=== PATIENT | female | born 1965 | race Two or more races ===

== ENCOUNTER 2024-12-17 10:15 | Outpatient (AMB) | payer MEDICAID, SELFPAY ==
--- NOTE | 2024-12-17 10:42 | PD.ORTHCLVIS ---
Vital signs 12/17/24 10:43 Height 1.45 m Height Method Stated Weight 74.644 kg Weight Measurement Method Standing Scale BMI 35.6 BP 130/77 Blood Pressure Source Automatic Cuff Blood Pressure Location Left Upper Arm Position Sitting Respiration 18 Pulse 84 Pulse Source Monitor Temp 97.5 F Temp Source Temporal Artery Scan Pulse Oximetry (%) 97 Oxygen Delivery Method Room Air Med/Allergies Allergies & Medications Allergies NKA Allergy (Unknown, Uncoded 12/17/24 10:43) No Known Allergies Allergy (Uncoded 12/17/24 10:43) Medication Reconciliation ibuprofen 800 mg tablet 800 mg PO TID PRN Pain 12/06/20 [History Confirmed 12/17/24] tramadol 50 mg tablet 50 mg PO BID 12/06/20 [History Confirmed 12/17/24] Exam Exam Patient is in no acute distress and is cooperative with the examination today. Breathing is nonlabored. In no respiratory distress. Bilateral extremities were evaluated and demonstrates sensation intact to light touch. Palpable pedal pulses are present. No significant edema is present. Bilateral hips were examined. The patient has no pain with log roll of the hips. Internal rotation to 30 degrees and external rotation to 30 degrees is painless. Negative FADIR. The left knee was examined. The left knee is in varus alignment. Range of motion from 0-115 degrees. Knee is stable to varus and valgus as well as AP translation with <5mm. Patient has a negative McMurrays. There is no pain with patellofemoral compression and no crepitus noted. The knee is tender to palpation medially. The right knee was also examined. The right knee is in varus alignment. Range of motion from 0-120 degrees. Knee is stable to varus and valgus as well as AP translation with <5mm. Patient has a negative McMurrays. There is no pain with patellofemoral compression and no crepitus noted. The knee is tender to palpation medially. Patient has no x-rays with her today Assessment and Plan Problem List (1) Bilateral primary osteoarthritis of knee: Status: Acute Plan: ASSESSMENT AND PLAN 1. Bilateral knee pain: The patient reports bilateral knee pain, with the left knee initially being worse but now the right knee is more painful. She has had 5 injections in both knees, which initially helped but are no longer effective. She is taking tramadol and ibuprofen, which provide minimal relief. An MRI has shown severe arthritis in the knee. Weightbearing x-rays will be ordered to further assess the condition. Weightbearing x-rays will be ordered to further assess the condition. Depending on the x-ray results, treatment options include additional injections or surgery. The risks and benefits of both options were discussed. Injections may provide temporary relief but are not a long-term solution, whereas surgery could offer more permanent relief but comes with higher risks and a longer recovery period. The importance of weight management and physical therapy was emphasized to help manage symptoms and improve knee function. The patient was advised to continue taking tramadol and ibuprofen as needed for pain management. Referral to an electronics specialist may be considered based on the x-ray findings. Office Procedures GNS Level of Care Nursing/Assessment Patient Status: Initial/New Patient Nursing Assessment/Reassesment: Medication Reconciliation, Update PMH in EMR and Vital Signs Coordination of Care: Complex Care and Chronic Disease 1-5, Education Complex Pt/Fam, Consent,records obtained, informed consent, 1 Ins Authorization, Lab and Imaging orders, Results/Orders obtained and Staff clarify orders Special Needs: Language special needs New Patient Charge New Patient Point Assignment: 1124 New Patient Point Charge: PHLEBOTOMIST MEDICAL LAB ASSISTANT Level 4 ([id number]) MA Intake Visit Data Collection New Patient or Established: New Patient (never been to [facility]) Reason for Visit:: LEFT KNEE PAIN Seen by Clinical Staff ONLY (RN/MA): No 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 PCP or OBGYN visit in last 3 months: Yes Hx Now: No Do You Feel Safe at Home: Yes Authorities Contacted: N/A Questionairres Past Medical History Past Medical History Have you ever been diagnosed with any of the following: Neurological Problems Seizures: No Cardiology Problems Congestive Heart Failure: No Respiratory Problems Chronic Obstructive Pulmonary Disease (COPD): No Stomache/Intestinal Problems Hepatitis: No Genital/Urinary Problems Renal Disease: No Reproductive Problems Previous Pregnancies: Yes Musculoskeletal Problems Arthritis: Yes Endocrine Problems Diabetes Mellitus Type 1: No Diabetes Mellitus Type 2: No Psychologic Problems Depression: Yes Anxiety: Yes Other Problems Hospitalization: No Shingles: No Falls: No Blood Transfusions: No Blood Transfusion Reaction: No Anesthesia Reactions: No Chemotherapy: No Radiation Therapy: No MRSA: No Chicken Pox: No Measles: No Mumps: No Cancer: No Subjective Visit Visit for: new patient and knee Immunization / Flu Flu Vaccine in the Last 12 Months: Yes Flu Vaccine Exclusion Criteria: Already Received History of Present Illness Chief complaint: LEFT KNEE PAIN Date of 1st surgery (if applicable): 6MONTHS HISTORY OF PRESENT ILLNESS I, Edouard Bhagat, have obtained verbal consent from the patient, to be recorded during this encounter which may include, but not limited to, medical history, examination, treatment plans, and relevant health information.? Patient was informed that recording will be read and reviewed by myself before inclusion in the medical chart. The patient presents for evaluation of left knee pain. She reports bilateral knee pain, with the left being more severe. She has undergone x-rays in the past but no recent imaging. She has received 5 injections in each knee, which initially provided relief but have since become ineffective. She has not engaged in physical therapy for her pain. She is prediabetic but reports no other health concerns. She reports experiencing pain throughout the entire anterior aspect of her left knee. Initially, the left knee was more problematic, but currently, the right knee is causing more discomfort. Her x-rays were previously conducted while she was in a supine position. She is currently on tramadol and ibuprofen, which provide intermittent relief but are not consistently effective. 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
[2024-12-17 10:43] VITALS: BP 130/77; PULSE 84; RESP 18; TEMP 36.4; O2SAT 97; BMI 35.6
--- NOTE | 2024-12-17 10:52 | XR_ITS ---
EXAMINATION: Bilateral knees 2 views Right lateral knee left lateral knee 2 views Bilateral Axuni single view TECHNIQUE: Bilateral AP knees standing single view Bilateral PA knees standing single view flexion Standing right lateral knee left lateral knee 2 views Bilateral Axuni single view total 5 views Date and time: December 17, 2024, 10:50 a.m. INDICATIONS: Bilateral knee pain beginning 5 years ago. FINDINGS: Significant osteopenia Severe narrowing [id number] medial joint space right knee Significant osteoarthritis lateral and right patellofemoral joints Advanced narrowing medial joint space left knee Significant osteoarthritis lateral patellofemoral joints left knee No fractures IMPRESSION: Severe narrowing [id number] medial joint space right knee Significant osteoarthritis lateral and right patellofemoral joints Advanced narrowing medial joint space left knee Significant osteoarthritis lateral patellofemoral joints left knee
== END 2024-12-17 10:56 | disposition home or self-care (01) ==
PROVIDERS: PCP Specialist; Referring Provider Specialist; Supervising Provider Orthopaedic Surgery Adult Reconstructive Orthopaedic Surgery; Visit Provider Orthopaedic Surgery Adult Reconstructive Orthopaedic Surgery
DX: M25.562 Pain in left knee (principal); M25.561 Pain in right knee; M17.0 Bilateral primary osteoarthritis of knee; R73.03 Prediabetes
CPT/HCPCS: 73564; 99204; G0463

== ENCOUNTER 2024-12-31 09:53 | Outpatient (AMB) | payer MEDICAID, SELFPAY ==
[2024-12-31 10:03] VITALS: BP 142/85; PULSE 89; RESP 18; TEMP 36.3; O2SAT 97; BMI 35.4
--- NOTE | 2024-12-31 10:03 | PD.ORTHCLVIS ---
Vital signs 12/31/24 10:03 Height 1.45 m Height Method Stated Weight 74.446 kg Weight Measurement Method Standing Scale BMI 35.4 BP 142/85 H Blood Pressure Source Automatic Cuff Blood Pressure Location Left Upper Arm Position Sitting Respiration 18 Pulse 89 Pulse Source Monitor Temp 97.4 F Temp Source Temporal Artery Scan Pulse Oximetry (%) 97 Oxygen Delivery Method Room Air Med/Allergies Allergies & Medications Allergies NKA Allergy (Unknown, Uncoded 12/31/24 10:04) No Known Allergies Allergy (Uncoded 12/31/24 10:04) Medication Reconciliation ibuprofen 800 mg tablet 800 mg PO TID PRN Pain 12/06/20 [History Confirmed 12/31/24] tramadol 50 mg tablet 50 mg PO BID 12/06/20 [History Confirmed 12/31/24] Exam Exam Patient is in no acute distress and is cooperative with the examination today. Breathing is nonlabored. In no respiratory distress. Bilateral extremities were evaluated and demonstrates sensation intact to light touch. Palpable pedal pulses are present. No significant edema is present. Bilateral hips were examined. The patient has no pain with log roll of the hips. Internal rotation to 30 degrees and external rotation to 30 degrees is painless. Negative FADIR. The left knee was examined. The left knee is in varus alignment. Range of motion from 0-115 degrees. Knee is stable to varus and valgus as well as AP translation with <5mm. Patient has a negative McMurrays. There is no pain with patellofemoral compression and no crepitus noted. The knee is tender to palpation medially. The right knee was also examined. The right knee is in varus alignment. Range of motion from 0-120 degrees. Knee is stable to varus and valgus as well as AP translation with <5mm. Patient has a negative McMurrays. There is no pain with patellofemoral compression and no crepitus noted. The knee is tender to palpation medially. X-rays dated 12/17/2024 demonstrates complete joint space narrowing medially with varus arthritis and arthritis. She has bilateral complete obliteration of medial joint space Assessment and Plan Problem List (1) Bilateral primary osteoarthritis of knee: Status: Acute Plan: ASSESSMENT AND PLAN 1. Bilateral knee pain: The patient reports bilateral knee pain, with the left knee initially being worse but now the right knee is more painful. She has had 5 injections in both knees, which initially helped but are no longer effective. She has failed conservative treatment including injections, weight loss, and formal physical therapy. We thus considered total knee replacement as a reasonable option. The right side is significantly worse and we will thus start with a total knee replacement on the right The nature and purpose of the total knee replacement, alternative method(s) of treatment, the material risks involved, and the possibility of complications were fully explained to the patient. The patient does NOT have any of the following contraindications to TKA: - Active infection of the knee joint, OR - Active systemic bacteremia, OR - Active skin infection or open wound at surgical site, OR - Neuropathic arthritis, OR - Severe, rapidly progressive neurological disease, OR - Severe medical condition that makes risks of surgery outweigh the potential benefit The patient was told the most common risks and complications associated with a total knee replacement include, but are not limited to: blood clots in the leg, fatal pulmonary embolism, dislocation of the prosthesis, intraoperative and postoperative fractures of the femur or tibia, infection, failure of the prosthesis or grafting materials, complications from anesthesia, reactions to blood transfusions, postoperative leg length inequality, instability of the knee replacement, nerve damage or injury, vascular injury, delayed wound healing, infection, other injury or even . In addition, there are risks associated with anesthesia given during this operation. Also, the patient was told that after undergoing a total knee replacement there may still be persistent pain or disability. The patient was informed that the success of this operation in part depends upon the mechanical devices which are going to be implanted and that these devices can fail or malfunction, and may need to be repaired or replaced and there are no guarantees as to the longevity of this device or its parts and that it or its parts could fail prematurely. The patient was also notified that during the course of surgery, there may be a need to use bone graft from donors, and that any bone graft used will be carefully screened for communicable diseases, including AIDS, hepatitis, Arnaud-Creutzfeldt, or other diseases, but despite the screening procedures, there is a small chance that they could contract one of these diseases. Finally, the patient was asked to follow completely and fully with all advice and recommended treatments, and that recovery and ultimate outcome are affected by their compliance with recommended treatment. We discussed the risks, benefits and treatment alternatives, and the patient is interested in proceeding with surgery. We will try to set this up as expeditiously as possible. Office Procedures GNS Level of Care Nursing/Assessment Patient Status: Established Patient Nursing Assessment/Reassesment: Medication Reconciliation, Update PMH in EMR and Vital Signs Coordination of Care: Complex Care and Chronic Disease 1-5, Education Complex Pt/Fam, Consent,records obtained, informed consent, Results/Orders obtained and Staff clarify orders Special Needs: Language special needs Established Patient Charge Established Patient Point Assignment: 95 Established Patient Point Charge: EP Level 3 (80-115) MA Intake Visit Data Collection New Patient or Established: New Patient (never been to [facility]) Reason for Visit:: BL KNEE PAIN Seen by Clinical Staff ONLY (RN/MA): No Make Up Operator 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 Required: 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 PCP or OBGYN visit in last 3 months: Yes Hx Now: No Do You Feel Safe at Home: Yes Authorities Contacted: N/A Questionairres Past Medical History Past Medical History Have you ever been diagnosed with any of the following: Neurological Problems Seizures: No Cardiology Problems Congestive Heart Failure: No Respiratory Problems Chronic Obstructive Pulmonary Disease (COPD): No Smoking: No Smoking Cessation Counseling: No Smoking Exposure: No Stomache/Intestinal Problems Hepatitis: No Genital/Urinary Problems Renal Disease: No Reproductive Problems Previous Pregnancies: Yes Musculoskeletal Problems Arthritis: Yes Endocrine Problems Diabetes Mellitus Type 1: No Diabetes Mellitus Type 2: No Psychologic Problems Depression: Yes Anxiety: Yes Other Problems Hospitalization: No Shingles: No Falls: No Blood Transfusions: No Blood Transfusion Reaction: No Anesthesia Reactions: No Chemotherapy: No Radiation Therapy: No MRSA: No Chicken Pox: No Measles: No Mumps: No Cancer: No Subjective Visit Visit for: follow up visit and knee (BILATERAL) Immunization / Flu Flu Vaccine in the Last 12 Months: Yes Flu Vaccine Exclusion Criteria: Already Received History of Present Illness Chief complaint: Right knee pain Date of 1st surgery (if applicable): 6MONTHS HISTORY OF PRESENT ILLNESS IEdouard, have obtained verbal consent from the patient, to be recorded during this encounter which may include, but not limited to, medical history, examination, treatment plans, and relevant health information.? Patient was informed that recording will be read and reviewed by myself before inclusion in the medical chart. The patient presents for evaluation of left knee pain. She reports bilateral knee pain, with the left being more severe. She has undergone x-rays in the past but no recent imaging. She has received 5 injections in each knee, which initially provided relief but have since become ineffective. She has not engaged in physical therapy for her pain. She is prediabetic but reports no other health concerns. She reports experiencing pain throughout the entire anterior aspect of her left knee. Initially, the left knee was more problematic, but currently, the right knee is causing her more discomfort. 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 Patient has a reported history of prediabetes with an A1c less than 7
== END 2024-12-31 10:32 | disposition home or self-care (01) ==
LOC: HODSRG 09:53
PROVIDERS: PCP Specialist; Referring Provider Specialist; Supervising Provider Orthopaedic Surgery Adult Reconstructive Orthopaedic Surgery; Visit Provider Orthopaedic Surgery Adult Reconstructive Orthopaedic Surgery
DX: M25.562 Pain in left knee (principal); M25.561 Pain in right knee; M17.0 Bilateral primary osteoarthritis of knee; R73.03 Prediabetes
CPT/HCPCS: 99213; G0463

== ENCOUNTER 2025-01-28 08:30 | Outpatient (AMB) | payer MEDICAID, SELFPAY ==
[2025-01-28 08:52] VITALS: BP 129/84; PULSE 83; RESP 18; TEMP 36.3; O2SAT 95; BMI 35.9
--- NOTE | 2025-01-28 08:52 | PD.ORTHCLVIS ---
Vital signs 01/28/25 08:52 Height 1.45 m Height Method Stated Weight 75.523 kg Weight Measurement Method Standing Scale BMI 35.9 BP 129/84 Blood Pressure Source Automatic Cuff Blood Pressure Location Left Upper Arm Position Sitting Respiration 18 Pulse 83 Pulse Source Monitor Temp 97.4 F Temp Source Temporal Artery Scan Pulse Oximetry (%) 95 Oxygen Delivery Method Room Air Med/Allergies Allergies & Medications Allergies NKA Allergy (Unknown, Uncoded 01/28/25 08:53) No Known Allergies Allergy (Uncoded 01/28/25 08:53) Medication Reconciliation ibuprofen 800 mg tablet 800 mg PO TID PRN Pain 12/06/20 [History Confirmed 01/28/25] tramadol 50 mg tablet 50 mg PO BID 12/06/20 [History Confirmed 01/28/25] Exam Exam Patient is in no acute distress and is cooperative with the examination today. Breathing is nonlabored. In no respiratory distress. Bilateral extremities were evaluated and demonstrates sensation intact to light touch. Palpable pedal pulses are present. No significant edema is present. Bilateral hips were examined. The patient has no pain with log roll of the hips. Internal rotation to 30 degrees and external rotation to 30 degrees is painless. Negative FADIR. The left knee was examined. The left knee is in varus alignment. Range of motion from 0-115 degrees. Knee is stable to varus and valgus as well as AP translation with <5mm. Patient has a negative McMurrays. There is no pain with patellofemoral compression and no crepitus noted. The knee is tender to palpation medially. The right knee was also examined. The right knee is in varus alignment. Range of motion from 0-120 degrees. Knee is stable to varus and valgus as well as AP translation with <5mm. Patient has a negative McMurrays. There is no pain with patellofemoral compression and no crepitus noted. The knee is tender to palpation medially. X-rays dated 12/17/2024 demonstrates complete joint space narrowing medially with varus arthritis and arthritis. She has bilateral complete obliteration of medial joint space Assessment and Plan Problem List (1) Bilateral primary osteoarthritis of knee: Status: Acute Plan: ASSESSMENT AND PLAN 1. Bilateral knee pain: The patient reports bilateral knee pain, with the left knee initially being worse but now the right knee is more painful. She has had 5 injections in both knees, which initially helped but are no longer effective. She has failed conservative treatment including injections, weight loss, and formal physical therapy. We thus considered total knee replacement as a reasonable option. The right side is significantly worse and we will thus start with a total knee replacement on the right The nature and purpose of the total knee replacement, alternative method(s) of treatment, the material risks involved, and the possibility of complications were fully explained to the patient. The patient does NOT have any of the following contraindications to TKA: - Active infection of the knee joint, OR - Active systemic bacteremia, OR - Active skin infection or open wound at surgical site, OR - Neuropathic arthritis, OR - Severe, rapidly progressive neurological disease, OR - Severe medical condition that makes risks of surgery outweigh the potential benefit The patient was told the most common risks and complications associated with a total knee replacement include, but are not limited to: blood clots in the leg, fatal pulmonary embolism, dislocation of the prosthesis, intraoperative and postoperative fractures of the femur or tibia, infection, failure of the prosthesis or grafting materials, complications from anesthesia, reactions to blood transfusions, postoperative leg length inequality, instability of the knee replacement, nerve damage or injury, vascular injury, delayed wound healing, infection, other injury or even . In addition, there are risks associated with anesthesia given during this operation. Also, the patient was told that after undergoing a total knee replacement there may still be persistent pain or disability. The patient was informed that the success of this operation in part depends upon the mechanical devices which are going to be implanted and that these devices can fail or malfunction, and may need to be repaired or replaced and there are no guarantees as to the longevity of this device or its parts and that it or its parts could fail prematurely. The patient was also notified that during the course of surgery, there may be a need to use bone graft from donors, and that any bone graft used will be carefully screened for communicable diseases, including AIDS, hepatitis, Arnaud-Creutzfeldt, or other diseases, but despite the screening procedures, there is a small chance that they could contract one of these diseases. Finally, the patient was asked to follow completely and fully with all advice and recommended treatments, and that recovery and ultimate outcome are affected by their compliance with recommended treatment. We discussed the risks, benefits and treatment alternatives, and the patient is interested in proceeding with surgery. We will try to set this up as expeditiously as possible. Office Procedures GNS Level of Care Nursing/Assessment Patient Status: Established Patient Nursing Assessment/Reassesment: Medication Reconciliation, Update PMH in EMR and Vital Signs Coordination of Care: Complex Care and Chronic Disease 1-5, Education Complex Pt/Fam, Consent,records obtained, informed consent, Results/Orders obtained and Staff clarify orders Special Needs: Language special needs Established Patient Charge Established Patient Point Assignment: 95 Established Patient Point Charge: EP Level 3 (80-115) MA Intake Visit Data Collection New Patient or Established: Established Patient (seen at [facility] within 3 years) Reason for Visit:: PRE OP R TKA Seen by Clinical Staff ONLY (RN/MA): No Branch Store Manager Required: Yes PCP or OBGYN visit in last 3 months: Yes Hx Now: No Do You Feel Safe at Home: Yes Authorities Contacted: N/A Questionairres Past Medical History Past Medical History Have you ever been diagnosed with any of the following: Neurological Problems Seizures: No Cardiology Problems Congestive Heart Failure: No Respiratory Problems Chronic Obstructive Pulmonary Disease (COPD): No Smoking: No Smoking Cessation Counseling: No Smoking Exposure: No Stomache/Intestinal Problems Hepatitis: No Genital/Urinary Problems Renal Disease: No Reproductive Problems Previous Pregnancies: Yes Musculoskeletal Problems Arthritis: Yes Endocrine Problems Diabetes Mellitus Type 1: No Diabetes Mellitus Type 2: No Psychologic Problems Depression: Yes Anxiety: Yes Other Problems Hospitalization: No Shingles: No Falls: No Blood Transfusions: No Blood Transfusion Reaction: No Anesthesia Reactions: No Chemotherapy: No Radiation Therapy: No MRSA: No Chicken Pox: No Measles: No Mumps: No Cancer: No Subjective Visit Visit for: follow up visit and knee (BILATERAL) Immunization / Flu Flu Vaccine in the Last 12 Months: Yes Flu Vaccine Exclusion Criteria: Already Received History of Present Illness Chief complaint: Right knee pain Date of 1st surgery (if applicable): 6MONTHS HISTORY OF PRESENT ILLNESS IEdouard, have obtained verbal consent from the patient, to be recorded during this encounter which may include, but not limited to, medical history, examination, treatment plans, and relevant health information.? Patient was informed that recording will be read and reviewed by myself before inclusion in the medical chart. The patient presents for evaluation of right knee pain. She reports bilateral knee pain, with the left being more severe. She has undergone x-rays in the past but no recent imaging. She has received 5 injections in each knee, which initially provided relief but have since become ineffective. She has not engaged in physical therapy for her pain. She is prediabetic but reports no other health concerns. She reports experiencing pain throughout the entire anterior aspect of her left knee. Initially, the left knee was more problematic, but currently, the right knee is causing her more discomfort. 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
== END 2025-01-28 09:21 | disposition home or self-care (01) ==
LOC: HODSRG 08:30
PROVIDERS: PCP Specialist; Referring Provider Specialist; Supervising Provider Orthopaedic Surgery Adult Reconstructive Orthopaedic Surgery; Visit Provider Orthopaedic Surgery Adult Reconstructive Orthopaedic Surgery
DX: M25.562 Pain in left knee (principal); M25.561 Pain in right knee
CPT/HCPCS: 99213; G0463

== ENCOUNTER → 2025-01-28 | Outpatient (CLI) | payer MEDICAID, SELFPAY ==
--- NOTE | 2025-01-28 17:00 | XR_ITS ---
Examination: CT right lower extremity, without contrast. 2-D sagittal reconstructions. 2-D coronal reconstructions. 3-D reconstructions. Date and time of exam: January 28, 2025, 1658 hours INDICATIONS: Diagnosis primary unilateral osteoarthritis right knee, right knee pain 3 years CTDI: vol (mGy): 13.5 DLP: (mGycm): 761 Technique: Multiple 1.25 mm axial sections of the right lower extremity without intravenous contrast have been obtained. 2-D sagittal and coronal reconstructions have been obtained. 3-D reconstructions have been obtained. Low dose protocols were performed. One or more of the following dose reduction techniques were used; automated exposure control, adjustment of the mA and/or KV according to patient size, use of iterative reconstruction technique. Findings: Moderate osteopenia Mild to moderate narrowing right hip joint No right hip fracture or dislocation Advanced right knee tricompartment osteoarthritis, severe narrowing medial joint space No fracture or patellar dislocation IMPRESSION: Advanced right knee tricompartment osteoarthritis
== END | disposition home or self-care (01) ==
LOC: CCTX 16:37
PROVIDERS: PCP Specialist; Referring Provider Orthopaedic Surgery Adult Reconstructive Orthopaedic Surgery; Visit Provider Orthopaedic Surgery Adult Reconstructive Orthopaedic Surgery
DX: M17.11 Unilateral primary osteoarthritis, right knee (principal)
CPT/HCPCS: 73700